=== PATIENT | female | born 1975 | race Two or more races ===

== ENCOUNTER → 2025-01-29 16:11 | Outpatient (REF) | payer OTHER, SELFPAY ==
[2025-01-29 16:41] LABS: Hematocrit 30.6 % (37.0-47.0); Hemoglobin 9.8 g/dL (12.0-16.0); Mean Corp Hgb Conc. 32.0 g/dL (33.0-37.0); Mean Corpuscular Volume 97.1 fL (81.0-99.0); Nucleated Red Blood Cells % 0 %; Platelet Count 353 10^3/uL (130-400); Red Cell Dist. Width 15.8 % (11.5-14.5)
[2025-01-29 17:09] LABS: Iron 142 ug/dl (37-170)
[2025-01-29 17:18] LABS: Total Iron Binding Capacity 344 ug/dl (265-497)
[2025-01-29 17:45] LABS: Ferritin 108.0 ng/ml (6.24-137)
== END ==
LOC: REG 16:11
PROVIDERS: ATTENDING PHYSICIAN Internal Medicine Hematology & Oncology; FAMILY PHYSICIAN Family Medicine
DX: D50.9 Iron deficiency anemia, unspecified (principal)
CPT/HCPCS: 36415; 82728; 83540; 83550; 85025